=== PATIENT | female | born 1995 | race Caucasian/White ===

== ENCOUNTER 2017-01-17 18:12 | Emergency (ER) | payer OTHER ==
[~2017-01-17] VITALS: Wt 56.7 kg
[~2017-01-17 18:12] MED LIST: AMOXICILLIN500 MG PO; ANAPROX DS550 MG PO; ATIVAN0.5 MG PO; AUGMENTIN 500 M1 TAB PO; BENADRYL25 MG PO; CLARITIN-D 12 H1 TAB PO; CLARITIN10 MG PO; CLEOCIN150 MG PO; COLACE100 MG PO; DURICEF500 MG PO; FE-TABS325 MG PO; FLINTSTONES COM1 CT1 PO; MACROBID100 M1 PO; MOTRIN600 MG PO; MOTRIN800 MG PO; NKHM PO; NO DAILY MEDS; PERCOCET 325 MG1 TA6 PO; PHENERGAN25 M1 PO; PREDNISONE20 MG PO; RONDEC DM 480480 ML PO; TRIMOX500 MG PO; VIBRAMYCIN100 MG PO; ZANTAC150 MG PO; ZITHROMAX Z PA250 MG PO; ZOFRAN4 MG PO
[2017-01-17] MEDS ORDERED: AMOXICILLIN500 M2 PO (19:21)
== END 2017-01-17 19:21 | disposition home or self-care (01) ==
LOC: ED 18:12
DX: J02.0 Streptococcal pharyngitis (principal)

== ENCOUNTER 2017-03-06 12:52 | Emergency (ER) | payer OTHER ==
[~2017-03-06] VITALS: Ht 152.4 cm; Wt 61.7 kg
[~2017-03-06 12:52] MED LIST changes: +AMOXICILLIN500 M2 PO
[2017-03-06 13:12] LABS: BILIRUBIN NEGATIVE (NEGATIVE); BLOOD NEGATIVE (NEGATIVE); CLARITY SL CLOUDY (CLEAR); COLOR YELLOW (YELLOW); GLUCOSE NEGATIVE (NEGATIVE); KETONE NEGATIVE (NEGATIVE); LEUKO ESTERASE NEGATIVE (NEGATIVE); NITRITE NEGATIVE (NEGATIVE); PH 6.5 (5.0-9.0); PROTEIN NEGATIVE (NEGATIVE); SPECIFIC GRAVITY 1.015 (1.005-1.030)
[2017-03-06 13:19] LABS: BACTERIA 1+; MUCOUS 2+; URINE REFLEX COMMENT NO (NO)
== END 2017-03-06 13:56 | disposition home or self-care (01) ==
LOC: ED 12:52
PROVIDERS: Registered Nurse
DX: O26.891 Other specified pregnancy related conditions, first trimester (principal); R10.9 Unspecified abdominal pain; F32.9 Major depressive disorder, single episode, unspecified; Z3A.10 10 weeks gestation of pregnancy

== ENCOUNTER 2017-06-24 13:54 | Emergency (ER) | payer OTHER ==
[~2017-06-24] VITALS: Ht 152.4 cm; Wt 62.1 kg
[2017-06-24 14:22] LABS: BILIRUBIN NEGATIVE (NEGATIVE); BLOOD NEGATIVE (NEGATIVE); CLARITY CLEAR (CLEAR); COLOR YELLOW (YELLOW); GLUCOSE NEGATIVE (NEGATIVE); KETONE NEGATIVE (NEGATIVE); LEUKO ESTERASE TRACE (NEGATIVE); NITRITE NEGATIVE (NEGATIVE); SPECIFIC GRAVITY <= 1.005 (1.005-1.030); UROBILINOGEN 0.2 E.U./dl (0.2-1.0)
[2017-06-24 14:41] LABS: BACTERIA TRACE
[2017-06-24] MEDS ORDERED: MACROBID100 M1 PO (14:58)
== END 2017-06-24 15:05 | disposition home or self-care (01) ==
LOC: ED 13:54
PROVIDERS: Nurse Practitioner Family
DX: O23.92 Unspecified genitourinary tract infection in pregnancy, second trimester (principal); O98.812 Other maternal infectious and parasitic diseases complicating pregnancy, second trimester; O26.892 Other specified pregnancy related conditions, second trimester; A59.9 Trichomoniasis, unspecified; R03.0 Elevated blood-pressure reading, without diagnosis of hypertension; Z3A.25 25 weeks gestation of pregnancy

== ENCOUNTER 2017-09-19 09:53 | Emergency (ER) | payer OTHER ==
[~2017-09-19] VITALS: Wt 68.0 kg
== END 2017-09-19 11:14 | disposition short-term general hospital (02) ==
LOC: ED 09:53
DX: O62.9 Abnormality of forces of labor, unspecified (principal); Z3A.38 38 weeks gestation of pregnancy

== ENCOUNTER 2017-11-19 17:41 | Emergency (ER) | payer OTHER ==
[~2017-11-19] VITALS: Wt 54.4 kg
[2017-11-19 18:19] LABS: BILIRUBIN NEGATIVE (NEGATIVE); BLOOD TRACE-LYSED (NEGATIVE); CLARITY CLEAR (CLEAR); COLOR YELLOW (YELLOW); GLUCOSE NEGATIVE (NEGATIVE); KETONE NEGATIVE (NEGATIVE); LEUKO ESTERASE NEGATIVE (NEGATIVE); NITRITE NEGATIVE (NEGATIVE); SPECIFIC GRAVITY 1.025 (1.005-1.030); UROBILINOGEN 0.2 E.U./dl (0.2-1.0)
[2017-11-19 18:34] LABS: BACTERIA TRACE; EPITHELIAL CELLS 0-2
== END 2017-11-19 18:01 | disposition home or self-care (01) ==
LOC: ED 17:41
PROVIDERS: Physician Assistant
DX: A64 Unspecified sexually transmitted disease (principal)

== ENCOUNTER 2018-03-06 13:07 | Emergency (ER) | payer OTHER ==
[~2018-03-06] VITALS: Ht 154.9 cm; Wt 61.2 kg
== END 2018-03-06 13:38 | disposition home or self-care (01) ==
LOC: ED 13:07
DX: Z32.01 Encounter for pregnancy test, result positive (principal)

== ENCOUNTER 2018-09-12 15:55 | Emergency (ER) | payer OTHER ==
[~2018-09-12] VITALS: Wt 61.2 kg
== END 2018-09-12 18:43 | disposition home or self-care (01) ==
LOC: ED 15:55
DX: J06.9 Acute upper respiratory infection, unspecified (principal); J45.909 Unspecified asthma, uncomplicated

== ENCOUNTER → 2021-08-04 | Outpatient (CLI) | payer OTHER ==
[2021-08-04 20:14] LABS: BASO # 0.1 10*3/uL (0.0-0.1); BASO % 0.7 % (0.0-1.0); EOS # 0.4 10*3/uL (0.0-0.4); EOS % 3.8 % (1.0-4.0); HEMATOCRIT 38.4 % (37.0-47.0); LYMPH # 3.2 10*3/uL (1.3-4.4); MEAN CELL VOLUME 88.3 fl (81.0-99.0); MEAN CORPUSCULAR HGB 28.3 pg (27.0-31.0); MONO # 0.7 10*3/uL (0.1-1.0); MONO % 6.3 % (3.0-9.0); NEUT % 60.9 % (47.0-73.0); PLATELET COUNT AUTOMATED 356 10*3/uL (130-400); RED BLOOD COUNT 4.35 10*6/uL (4.10-5.10); RED CELL DISTRI WIDTH 12.1 % (0-14.5); WHITE BLOOD COUNT 11.4 10*3/uL (4.8-10.8)
[2021-08-04 20:34] LABS: ALBUMIN 3.9 gm/dl (3.1-4.5); ALKALINE PHOSPHATASE 79 U/L (45-117); BUN 15 mg/dl (7-24); CHLORIDE 109 mmol/L (98-107); CREATININE 0.62 mg/dL (0.55-1.02); POTASSIUM 3.6 mmol/L (3.5-5.1); SGOT/AST 21 IU/L (3-35); SGPT/ALT 34 U/L (12-78); SODIUM 141 mmol/L (136-145); TOTAL PROTEIN 8.2 gm/dL (6.4-8.2)
[2021-08-06 14:09] LABS: t-TRANSGLUTAMINASE (tTG) IGA <2 U/mL (0-3); t-TRANSGLUTAMINASE (tTG) IgG <2 U/mL (0-5)
== END | disposition home or self-care (01) ==
LOC: LAB 19:38
PROVIDERS: ATTEND Nurse Practitioner Family
DX: R11.10 Vomiting, unspecified (principal); R10.9 Unspecified abdominal pain; K59.00 Constipation, unspecified; R53.83 Other fatigue; R10.13 Epigastric pain

== ENCOUNTER 2024-07-13 16:06 | Emergency (ER) | payer OTHER ==
[~2024-07-13] VITALS: Ht 152.4 cm; Wt 68.0 kg
[2024-07-13] MEDS ORDERED: Amoxicillin/Clavulanate Pota 875 MG TAB PO ONE (16:45)
[2024-07-13] MEDS ORDERED: predniSONE 20 MG TAB PO ONE (16:45)
[2024-07-13] MEDS ORDERED: CETIRIZINE10 MG PO (16:46)
[2024-07-13] MEDS ORDERED: PREDNISONE20 M1 PO (16:46)
[2024-07-13] MEDS ORDERED: AMOX-CLAV 875-1 EACH PO (16:46)
== END 2024-07-13 17:00 | disposition home or self-care (01) ==
LOC: ED 16:06
DX: H66.93 Otitis media, unspecified, bilateral (principal); J30.2 Other seasonal allergic rhinitis

== ENCOUNTER → 2025-04-21 | Outpatient (CLI) | payer OTHER ==
[~2025-04-21] MED LIST changes: +AMOX-CLAV 875-1 EACH PO; +CETIRIZINE10 MG PO; +CIPRO500 MG PO; +PREDNISONE20 M1 PO
== END | disposition home or self-care (01) ==
LOC: LAB 11:44
PROVIDERS: ATTEND Internal Medicine Nephrology
DX: J36 Peritonsillar abscess (principal)